=== PATIENT | male | born 1975 | race American Indian/Alaskan Native ===

== ENCOUNTER 2017-07-21 13:05 | Inpatient (IN) | payer OTHER ==
[2017-07-21 17:14] LABS: Basophils # (Auto) 0.1 K/mm3 (0.0-0.1); Basophils % (Auto) 0.3 % (0.0-1.8); Eosinophils # (Auto) 0.1 K/mm3 (0.0-0.4); Eosinophils % (Auto) 0.4 % (0.0-4.3); Hematocrit 47.5 % (35.5-45.6); Hemoglobin 15.9 gm/dl (11.8-15.2); Lymphocytes # (Auto) 1.7 K/mm3 (1.2-5.4); Lymphocytes % (Auto) 9.5 % (13.4-35.0); Mean Corpuscular HGB Conc 34 % (32-34); Mean Corpuscular Hemoglobin 27 pg (28-32); Mean Corpuscular Volume 79 fl (84-94); Monocytes # (Auto) 1.9 K/mm3 (0.0-0.8); Monocytes % (Auto) 10.4 % (0.0-7.3); Platelet Count 190 K/mm3 (140-440); Red Blood Count 6.01 M/mm3 (3.65-5.03); Red Cell Distribution Width 14.4 % (13.2-15.2)
[2017-07-21 17:32] LABS: BUN/Creatinine Ratio 16; Blood Urea Nitrogen 11 mg/dL (9-20); Calcium 9.3 mg/dL (8.4-10.2); Hemolysis Index 22
[2017-07-21] MEDS ORDERED: LOVENOX SUB-Q ONE (18:21)
[2017-07-21] MEDS ORDERED: HEPARIN 10,000 UNITS/10 ML IV ONE (18:27)
[2017-07-21] MEDS ORDERED: NACL 0.9% 1000 ML 1,000 ML IV ONE (18:32)
--- NOTE | 2017-07-21 18:32 | Emergency Department Report ---
HPI - General Chief Complaint: Extremity Problem,Nontraumatic Time Seen by Provider: 07/21/17 18:20 - HPI HPI: The patient is a 42-year-old male whom presents for evaluation of right leg pain. The patient reports constant and severe 10/10 in severity right leg pain for the past 4-5 days. He states today pain is sharp in quality, and radiating from the possible leg distally, and associated with swelling and color change of the right leg. He shares that he engaged in a long drive for hours, days before onset of his symptoms. He denies trauma or injury to the right leg, fever, chills, night sweats, chest pain, dyspnea, cough, hemoptysis, history of DVT or PE, paresthesias or motor deficit in the right leg or foot. ED Past Medical Hx - Past Medical History Hx Hypertension: Yes - Surgical History Past Surgical History?: Yes Hx Appendectomy: Yes - Social History Smoking Status: Current Some Day Smoker Substance Use Type: Alcohol, Marijuana ED Review of Systems ROS: Stated complaint: RIGHT LEG PAIN Other details as noted in HPI Constitutional: denies: fever ENT: denies: throat or neck pain Respiratory: denies: cough, shortness of breath Cardiovascular: denies: chest pain Endocrine: denies unexplained weight loss or gain Gastrointestinal: denies: abdominal pain, nausea Genitourinary: denies: dysuria Musculoskeletal: reports: right leg pain and leg swelling Skin: denies: rash Neurological: denies: headache Hematological/Lymphatic: denies: easy bleeding or easy bruising Psych: denies sadness or hopelessness Physical Exam - Physical Exam Vital Signs: Vital Signs 07/21/17 15:11 Temperature 98.4 F Pulse Rate 110 H Respiratory 20 Rate Blood Pressure 154/94 Blood Pressure 154/94 [Left] O2 Sat by Pulse 99 Oximetry Physical Exam: General: well-nourished, well-developed, no acute distress Head: Normocephalic, atraumatic Eyes: normal sclera ENT: Mucous membranes are pale and dry Neck: trachea midline, neck supple, No neck stiffness, no cervical adenopathy Respiratory: Breath sounds equal bilaterally, no wheezing, rales, or rhonchi Cardio: S1 and S2 present, no murmurs, rubs, gallops, capillary refill is delayed Abdomen: Normoactive bowel sounds, soft abdomen, no rigidity, no guarding or rebound tenderness Musc: 1+ pitting edema to the right lower leg present, right calf tenderness with compression present, ecchymosis or erythema present throughout the distal right leg as well, leg compartments are soft, no pain with passive flexion or extension, distal sensation and motor function, and pulses in the right leg and foot intact, no sign of compartment syndrome at this time Skin: No rash Neuro: no facial drooping, normal speech Psych: Normal affect ED Course Vital Signs 07/21/17 15:11 Temperature 98.4 F Pulse Rate 110 H Respiratory 20 Rate Blood Pressure 154/94 Blood Pressure 154/94 [Left] O2 Sat by Pulse 99 Oximetry ED Medical Decision Making - Lab Data Result diagrams: 07/21/17 16:54 07/21/17 16:54 - Medical Decision Making The patient was seen and examined by myself. The patient is placed on a library consultant and continuous pulse ox. On initial evaluation, the patient was found to be in no distress. Evaluation orders were placed. The patient is given IV pain medicine, and 1 L normal saline fluid bolus for treatment of his dehydration. Lab results reveal elevated d-dimer and otherwise are unrevealing. Exam findings are classic for acute occlusive DVT, and the patient will be treated as such until confirmed with ultrasound in the a.m. A heparin bolus and infusion are administer and a Doppler ultrasound the right leg is ordered for the morning. Dr. Cavanaugh the physician on-call for the hospitalist service was contacted. He agreed to admit the patient for further treatment and close monitoring. The ED admit order was placed. The patient was admitted in guarded condition. Critical care attestation.: If time is entered above; I have spent that time in minutes in the direct care of this critically ill patient, excluding procedure time. ED Disposition Clinical Impression: Pain of right lower leg, Dehydration Acute deep vein thrombosis (DVT) of right lower extremity Qualifiers: Affected thrombotic vein of extremity: unspecified vein of extremity Qualified Code(s): I82.401 - Acute embolism and thrombosis of unspecified deep veins of right lower extremity Disposition: OP ADMIT IP TO THIS HOSP Is pt being admited?: Yes Does the pt Need Aspirin: Yes Condition: Stable Time of Disposition: 18:34
[2017-07-21] MEDS ORDERED: SUBLIMAZE IV ONE (18:42)
[2017-07-21] MEDS ORDERED: ZOFRAN IV ONE (18:42)
--- NOTE | 2017-07-21 19:34 | History and Physical Report ---
History of Present Illness Chief complaint: My right leg hurts and i have a rash on it History of present illness: 42 YO Male with HTN, Obesity,Nicotine Dependence, Metabolic Syndrome presents to ED for evaluation. Pt states that he has experienced right leg pain for the past 5 days, as well as a rash to his right lower leg. Pt states that the rash began after applying a pain relief patch to his leg. Pt states the pain to his right calf is severe, and rates the pain at 10/10, constant. sharp, and radiates down his leg. Pt states that he engaged in a long drive for hours, days before onset of his symptoms. Pt denies fever, chills, CP, Palpitations, trauma or injury to the right leg, hemoptysis, night sweats, dyspnea, cough, individual/family history of DVT or PE, paresthesias or motor deficit in the right leg or foot, or recent ill contacts. Pt seen and evaluated in ED and was initiated on therapeutic anticoagulation. Pt also found to have sepsis secondary to cellulitis to RLE and initiated on antibiotic therpay and sepsis protocol. Past History Past Medical History: hypertension Past Surgical History: appendectomy Social history: single, smoking. denies: alcohol abuse, prescription drug abuse Family history: diabetes, hypertension Medications and Allergies Allergies Allergy/AdvReac Type Severity Reaction Status Date / Time No Known Allergies Allergy Unverified 07/21/17 15:11 Home Medications Medication Instructions Recorded Confirmed Last Taken Type No Known Home Medications [No 07/22/17 07/22/17 Unknown History Reported Home Medications] Active Meds: Active Medications Heparin Sodium/Sodium Chloride (Heparin/ 0.45% Nacl-25,000 Unit/500 Ml) 25,000 unit in 500 mls @ 30 mls/hr IV TITR ANTHONY; 1,500 UNITS/HR PRN Reason: Protocol Review of Systems Constitutional: no weight loss, no weight gain, no fever, no chills Ears, nose, mouth and throat: no ear pain, no ear discharge, no tinnitis, no decreased hearing, no nose pain Cardiovascular: no chest pain, no orthopnea, no palpitations, no rapid/ irregular heart beat, no edema, no syncope, no lightheadedness Respiratory: no cough, no cough with sputum, no excessive sputum, no hemoptysis , no shortness of breath, no dyspnea on exertion Gastrointestinal: no abdominal pain, no nausea, no vomiting, no diarrhea Genitourinary Male: no hematuria, no flank pain, no discharge, no urinary frequency, no urinary hesitancy Rectal: no pain, no incontinence, no bleeding Musculoskeletal: no neck stiffness, no neck pain, no shooting arm pain, no arm numbness/tingling, no low back pain Integumentary: no rash, no pruritis, no redness, no sores, no wounds, no jaundice Neurological: no transient paralysis, no paralysis, no weakness, no parathesias , no numbness, no tingling, no seizures Psychiatric: no anxiety, no memory loss, no change in sleep habits, no sleep disturbances, no insomnia, no hypersomnia Endocrine: no cold intolerance, no heat intolerance, no polyphagia, no excessive thirst, no polydipsia, no polyuria, no nocturia Hematologic/Lymphatic: no easy bruising, no easy bleeding Allergic/Immunologic: no urticaria, no allergic rhinitis, no wheezing Exam - Constitutional Vitals: Temp Pulse Resp BP Pulse Ox 98.4 F 110 H 20 154/94 99 07/21/17 15:11 07/21/17 15:11 07/21/17 15:11 07/21/17 15:11 07/21/17 15:11 General appearance: Present: obese - EENT Eyes: Present: PERRL ENT: hearing intact, clear oral mucosa - Neck Neck: Present: supple, normal ROM - Respiratory Respiratory effort: normal Respiratory: bilateral: CTA - Cardiovascular Heart Sounds: Present: S1 & S2. Absent: rub, click - Extremities Extremities: pulses symmetrical, No edema Extremity abnormal: edema, erythema Peripheral Pulses: within normal limits - Abdominal General gastrointestinal: Present: soft, non-tender, non-distended, normal bowel sounds Male genitourinary: Present: normal - Integumentary Integumentary: Present: clear, warm, dry, erythema (RLE, Palpable venous cords) - Musculoskeletal Musculoskeletal: gait normal, strength equal bilaterally - Psychiatric Psychiatric: appropriate mood/affect, intact judgment & insight - Neurologic Neurologic: CNII-XII intact, moves all extremities Results - Labs CBC & Chem 7: 07/21/17 20:48 07/21/17 16:54 Labs: Abnormal lab results 07/21/17 07/21/17 Range/Units 16:54 16:54 WBC 18.4 H (4.5-11.0) K/mm3 RBC 6.01 H (3.65-5.03) M/mm3 Hgb 15.9 H (11.8-15.2) gm/dl Hct 47.5 H (35.5-45.6) % MCV 79 L (84-94) fl MCH 27 L (28-32) pg Lymph % (Auto) 9.5 L (13.4-35.0) % [place] % (Auto) 10.4 H (0.0-7.3) % [place] # 1.9 H (0.0-0.8) K/mm3 Seg Neutrophils % 79.4 H (40.0-70.0) % Seg Neutrophils # 14.6 H (1.8-7.7) K/mm3 Potassium 3.5 L (3.6-5.0) mmol/L Chloride 95.4 L (98-107) mmol/L Creatinine 0.7 L (0.8-1.5) mg/dL Glucose 103 H (75-100) mg/dL Assessment and Plan - Patient Problems (1) Acute deep vein thrombosis (DVT) of right lower extremity Current Visit: Yes Status: Acute Qualifiers: Affected thrombotic vein of extremity: unspecified vein of extremity Qualified Code(s): I82.401 - Acute embolism and thrombosis of unspecified deep veins of right lower extremity Plan to address problem: Heparin drip initiated in ED, CT RLE, RLE ultrasound, (2) Sepsis Current Visit: Yes Status: Acute Qualifiers: Sepsis type: sepsis due to unspecified organism Qualified Code(s): A41.9 - Sepsis, unspecified organism Plan to address problem: Sepsis protocol: IV abx, IVF, supportive care, blood cultures, serial lactic acid level, urinalysis, chest x ray, monitor uop q shift, (3) Cellulitis of right lower extremity Current Visit: Yes Status: Acute Plan to address problem: IV abx, IVF, supportive care (4) Nicotine dependence Current Visit: Yes Status: Acute Plan to address problem: Pt counseled, (5) Metabolic syndrome Current Visit: Yes Status: Acute Plan to address problem: Increased physical acitivity, balanced diet at discharge (6) Obesity Current Visit: Yes Status: Acute Plan to address problem: Balanced diet, increased physical acitvity at discharge. (7) DVT prophylaxis Current Visit: Yes Status: Acute
[2017-07-21] MEDS ORDERED: ZOFRAN ONE (20:59)
[2017-07-21] MEDS ORDERED: SUBLIMAZE ONE (21:00)
[2017-07-21 21:04] LABS: Hematocrit 44.3 % (35.5-45.6)
[2017-07-21 21:16] LABS: INR 1.08 (0.87-1.13)
[2017-07-21] MEDS ORDERED: NACL 0.9% 1000 ML IV ONE (21:24)
[2017-07-21] MEDS ORDERED: MILK OF MAGNESIA PO PRN (21:24)
[2017-07-21] MEDS ORDERED: ZOFRAN IV PRN (21:24)
[2017-07-21] MEDS ORDERED: DULCOLAX PR PRN (21:24)
[2017-07-21] MEDS ORDERED: PROVENTIL IH PRN (21:24)
[2017-07-21] MEDS ORDERED: HEPARIN 10,000 UNITS/10 ML ONE (21:43)
[2017-07-21] MEDS: HEPARIN/ 0.45% NACL-25,000 UNIT/500 ML 25,000 UNIT/500 ML BAG IV SCH (22:08)
[2017-07-22] MEDS: ZOSYN/NS 4.5GM/100ML 4.5 GM/100 ML VIAL IV SCH ×5 (01:46→23:21)
--- NOTE | 2017-07-22 01:52 | Cat Scan Report ---
FINAL REPORT EXAM: CT ANGIO LOWER EXTREMITY RT HISTORY: distal right leg swelling and pain TECHNIQUE: A CT angiogram was obtained of the right lower extremity extending from the hip joint through the entire foot following the intravenous injection of 150 cc of Omnipaque 350. Rotational sagittal and coronal MIP reconstructions were obtained. FINDINGS: There is diffuse subcutaneous edema extending from the distal thigh to involving entire calf and foot compatible with an extensive cellulitis there is no evidence of abscess or osteomyelitis. There is no evidence of arterial thrombosis or venous obstruction. The ankle knee joints appear intact. The hip joint is unremarkable. IMPRESSION: Extensive cellulitis extending from the distal thigh to involve the entire calf and foot. No evidence of abscess or osteomyelitis. No evidence of arterial obstruction or venous obstruction.
[2017-07-22] MEDS ORDERED: HEPARIN 10,000 UNITS/10 ML IV ONE (06:45)
[2017-07-22 09:01] LABS: Hematocrit 41.1 % (35.5-45.6); Hemoglobin 13.3 gm/dl (11.8-15.2); Mean Corpuscular HGB Conc 32 % (32-34); Mean Corpuscular Volume 80 fl (84-94); Platelet Count 180 K/mm3 (140-440); Red Blood Count 5.15 M/mm3 (3.65-5.03); Red Cell Distribution Width 14.9 % (13.2-15.2)
[2017-07-22 09:13] LABS: Mean Corpuscular Hemoglobin 26 pg (28-32)
[2017-07-22 09:21] LABS: BUN/Creatinine Ratio 13; Blood Urea Nitrogen 8 mg/dL (9-20); Calcium 8.6 mg/dL (8.4-10.2); Hemolysis Index 97
[2017-07-22] MEDS: TYLENOL PO PRN ×3 (10:31→23:48)
[2017-07-22] MEDS: HEPARIN/ 0.45% NACL-25,000 UNIT/500 ML 25,000 UNIT/500 ML BAG IV SCH (13:33)
--- NOTE | 2017-07-22 14:06 | Progress Note ---
Assessment and Plan Assessment and plan: Sepsis due to right leg cellulitis. Continue Zosyn. Will consult ID Physician. Cellulitis right leg. There is warmth , merythema, color change. On Zosyn. Will consult ID Physician. Hypertension. BP stable. Morbid obesity. I discussed weight loss Full code status History Interval history: Right leg pain and redness Fever Hospitalist Physical - Physical exam Narrative exam: GEN APPEARANCE : Not in acute distress, morbidly obese HEENT: Normocephalic, Atraumatic NECK : supple, no JVD LUNGS: Clear to auscultation bilaterally, no rales, no wheeze HEART: S1 and S2 regular tachy, no murmurs, rubs or gallop ABD: Soft, non tender, non distended, normal bowel sounds EXT: Right leg erythema, warm, tender, no cyanosis, NEURO: Awake,alert, oriented x 3, no focal signs Psych: Normal mood - Constitutional Vitals: Temp Pulse Resp BP Pulse Ox 98.7 F 97 H 22 140/89 96 07/22/17 12:36 07/22/17 12:36 07/22/17 12:36 07/22/17 12:36 07/22/17 12:36 Results - Labs CBC & Chem 7: 07/22/17 08:05 07/22/17 08:05 Labs: Laboratory Last Values WBC 18.3 K/mm3 (4.5-11.0) H 07/22/17 08:05 RBC 5.15 M/mm3 (3.65-5.03) H 07/22/17 08:05 Hgb 13.3 gm/dl (11.8-15.2) 07/22/17 08:05 Hct 41.1 % (35.5-45.6) 07/22/17 08:05 MCV 80 fl (84-94) L 07/22/17 08:05 MCH 26 pg (28-32) L 07/22/17 08:05 MCHC 32 % (32-34) 07/22/17 08:05 RDW 14.9 % (13.2-15.2) 07/22/17 08:05 Plt Count 180 K/mm3 (140-440) 07/22/17 08:05 Lymph % (Auto) 9.5 % (13.4-35.0) L 07/21/17 16:54 [place] % (Auto) 10.4 % (0.0-7.3) H 07/21/17 16:54 Eos % (Auto) 0.4 % (0.0-4.3) 07/21/17 16:54 Baso % (Auto) 0.3 % (0.0-1.8) 07/21/17 16:54 Lymph # 1.7 K/mm3 (1.2-5.4) 07/21/17 16:54 [place] # 1.9 K/mm3 (0.0-0.8) H 07/21/17 16:54 Eos # 0.1 K/mm3 (0.0-0.4) 07/21/17 16:54 Baso # 0.1 K/mm3 (0.0-0.1) 07/21/17 16:54 Seg Neutrophils % 79.4 % (40.0-70.0) H 07/21/17 16:54 Seg Neutrophils # 14.6 K/mm3 (1.8-7.7) H 07/21/17 16:54 PT 14.6 Sec. (12.2-14.9) 07/21/17 20:48 INR 1.08 (0.87-1.13) 07/21/17 20:48 APTT 40.0 Sec. (24.2-36.6) H 07/21/17 20:48 D-Dimer 194.86 ng/mlDDU (0-234) 07/21/17 20:48 Heparin Anti-Xa Level < 0.10 U.I./ml (0.3-0.7) L 07/22/17 04:00 Sodium 138 mmol/L (137-145) 07/22/17 08:05 Potassium 4.5 mmol/L (3.6-5.0) D 07/22/17 08:05 Chloride 96.9 mmol/L (98-107) L 07/22/17 08:05 Carbon Dioxide 24 mmol/L (22-30) 07/22/17 08:05 Anion Gap 22 mmol/L 07/22/17 08:05 BUN 8 mg/dL (9-20) L 07/22/17 08:05 Creatinine 0.6 mg/dL (0.8-1.5) L 07/22/17 08:05 Estimated GFR > 60 ml/min 07/22/17 08:05 BUN/Creatinine Ratio 13 % 07/22/17 08:05 Glucose 108 mg/dL (75-100) H 07/22/17 08:05 Lactic Acid 1.60 mmol/L (0.7-2.0) 07/22/17 03:30 Calcium 8.6 mg/dL (8.4-10.2) 07/22/17 08:05 Total Creatine Kinase 148 units/L (55-170) 07/21/17 Unknown
--- NOTE | 2017-07-22 14:31 | Consultation ---
History of Present Illness - Reason for Consult Consult date: 07/22/17 cellulitis Requesting physician: RIKI SHAFER - History of Present Illness 42 years old male with history of HTN, Obesity,Nicotine Dependence, Metabolic Syndrome, admitted on 07/21/17, 3 weeks history of progressive left leg edema, erythema, tenderness. Patient reports that 3 weeks ago he dropped a couch on his left great toe. His toe became red however with minimal pain. The same day , he noticed severe pain on his left heel. Since then he noticed mild erythema in the foot. During the last week, he had edema which progressed and became very tender and edematous. Patient kept working and his boss told him to seek for medical attention. He reports subjective fever. Denies any nausea vomiting or diarrhea. Reports chills. In the emergency room, initial temperature was 100.6, heart rate 110, blood pressure 154/94. Initial white count 18.4. Creatinine 0.7. Lactic acid 1.5. CTA of the legs show extensive cellulitis without any abscess or osteomyelitis. Microbiology: Blood cultures: 07/21 ngtd Urine cultures: Current Antimicrobials: Zosyn Previous Antimicrobials: Past History Past Medical History: hypertension Past Surgical History: appendectomy Social history: single, smoking. denies: alcohol abuse, prescription drug abuse Family history: diabetes, hypertension Medications and Allergies Allergies Allergy/AdvReac Type Severity Reaction Status Date / Time No Known Allergies Allergy Unverified 07/21/17 15:11 Home Medications Medication Instructions Recorded Confirmed Last Taken Type No Known Home Medications [No 07/22/17 07/22/17 Unknown History Reported Home Medications] Active Meds: Active Medications Acetaminophen (Tylenol) 650 mg PO Q4H PRN PRN Reason: Pain MILD(1-3)/Fever >100.5/MAYER Last Admin: 07/22/17 10:31 Dose: 650 mg Albuterol (Proventil) 2.5 mg IH Q4HRT PRN PRN Reason: Shortness Of Breath Bisacodyl (Dulcolax) 10 mg MT QDAY PRN PRN Reason: Constipation unrelieved by MOM Heparin Sodium/Sodium Chloride (Heparin/ 0.45% Nacl-25,000 Unit/500 Ml) 25,000 unit in 500 mls @ 30 mls/hr IV TITR ANTHONY; 1,500 UNITS/HR PRN Reason: Protocol Last Admin: 07/22/17 13:33 Dose: 1,900 units/hr, 38 mls/hr Piperacillin Sod/Tazobactam Sod (Zosyn/Ns 4.5gm/100ml) 4.5 gm in 100 mls @ 200 mls/hr IV Q8HR ANTHONY PRN Reason: Protocol Last Admin: 07/22/17 09:31 Dose: 200 mls/hr Magnesium Hydroxide (Milk Of Magnesia) 30 ml PO Q4H PRN PRN Reason: Constipation Ondansetron HCl (Zofran) 4 mg IV Q8H PRN PRN Reason: N/V unrelieved by Reglan Physical Examination - Physical Exam Narrative exam: General appearance: Alert in NAD, conversant Eyes: anicteric sclerae, moist conjunctivae; no lid-lag; PERRLA HENT: Atraumatic; oropharynx clear Neck: Trachea midline; supple, no thyromegaly or lymphadenopathy Lungs: CTA, with normal respiratory effort and no intercostal retractions CV: RRR, no murmurs Abdomen: Soft, non-tender; no masses or hepatosplenomegaly Extremities: No peripheral edema or extremity lymphadenopathy Skin: +marked right leg edema, tenderness and erythema +right inguinal LN Psych: Appropriate affect, alert and oriented to person, place and time. Neuro: alert and oriented x 3. Moving all extermities Lines: No CVL / PICC - Constitutional Vitals: Vital Signs Temp Pulse Resp BP Pulse Ox 98.7 F 97 H 22 140/89 96 07/22/17 12:36 07/22/17 12:36 07/22/17 12:36 07/22/17 12:36 07/22/17 12:36 Temperature -Last 24 Hours Temperature 98.7 F Temperature 100.3 F Temperature 100.6 F Temperature 98.4 F Temperature 98.4 F Results - Labs CBC & Chem 7: 07/22/17 08:05 07/22/17 08:05 Labs: Abnormal lab results 07/21/17 07/21/17 07/21/17 Range/Units 16:54 16:54 20:48 WBC 18.4 H (4.5-11.0) K/mm3 RBC 6.01 H (3.65-5.03) M/mm3 Hgb 15.9 H (11.8-15.2) gm/dl Hct 47.5 H (35.5-45.6) % MCV 79 L (84-94) fl MCH 27 L (28-32) pg Lymph % (Auto) 9.5 L (13.4-35.0) % [place] % (Auto) 10.4 H (0.0-7.3) % [place] # 1.9 H (0.0-0.8) K/mm3 Seg Neutrophils % 79.4 H (40.0-70.0) % Seg Neutrophils # 14.6 H (1.8-7.7) K/mm3 APTT 40.0 H (24.2-36.6) Sec. Heparin Anti-Xa Level (0.3-0.7) U.I./ml Potassium 3.5 L (3.6-5.0) mmol/L Chloride 95.4 L (98-107) mmol/L BUN (9-20) mg/dL Creatinine 0.7 L (0.8-1.5) mg/dL Glucose 103 H (75-100) mg/dL 07/22/17 07/22/17 07/22/17 Range/Units 04:00 08:05 08:05 WBC 18.3 H (4.5-11.0) K/mm3 RBC 5.15 H (3.65-5.03) M/mm3 Hgb (11.8-15.2) gm/dl Hct (35.5-45.6) % MCV 80 L (84-94) fl MCH 26 L (28-32) pg Lymph % (Auto) (13.4-35.0) % [place] % (Auto) (0.0-7.3) % [place] # (0.0-0.8) K/mm3 Seg Neutrophils % (40.0-70.0) % Seg Neutrophils # (1.8-7.7) K/mm3 APTT (24.2-36.6) Sec. Heparin Anti-Xa Level < 0.10 L (0.3-0.7) U.I./ml Potassium (3.6-5.0) mmol/L Chloride 96.9 L (98-107) mmol/L BUN 8 L (9-20) mg/dL Creatinine 0.6 L (0.8-1.5) mg/dL Glucose 108 H (75-100) mg/dL Assessment and Plan Assessment: 1) Sepsis: Present on admission, manifested by fever, tachycardia, leukocytosis. Etiology most likely RLE cellulitis. 2) RLE cellulitis -CTA showed extensive cellulitis no abscess or osteo 3) Athlete's foot Plan: -follow-up blood cultures -obtain C-reactive protein (CRP) -US venous -leg elevation -add clindamycin IV -continue zosyn -topical antimicotics Thank you Dr Shafer for your consultation, will follow up with you. Perla Williamson MD Infectious Diseases Specialist [facility], [place], [facility] ([facility] M [phone] O [phone]
[2017-07-22] MEDS: CLEOCIN 900 MG/50 mL 900 MG/50 ML BAG IV SCH ×2 (15:56→23:24)
[2017-07-22] MEDS: NIZORAL TP SCH ×2 (17:17→23:31)
[2017-07-23] MEDS: HEPARIN/ 0.45% NACL-25,000 UNIT/500 ML 25,000 UNIT/500 ML BAG IV SCH (01:59)
[2017-07-23 02:56] LABS: Hematocrit 40.4 % (35.5-45.6); Hemoglobin 13.5 gm/dl (11.8-15.2); Mean Corpuscular HGB Conc 33 % (32-34); Mean Corpuscular Hemoglobin 27 pg (28-32); Mean Corpuscular Volume 79 fl (84-94); Platelet Count 197 K/mm3 (140-440); Red Blood Count 5.08 M/mm3 (3.65-5.03); Red Cell Distribution Width 14.7 % (13.2-15.2)
[2017-07-23 06:11] LABS: BUN/Creatinine Ratio 10; Blood Urea Nitrogen 7 mg/dL (9-20)
[2017-07-23 06:12] LABS: Hemolysis Index 15
[2017-07-23] MEDS: CLEOCIN 900 MG/50 mL 900 MG/50 ML BAG IV SCH ×2 (07:35→14:47)
[2017-07-23] MEDS: ZOSYN/NS 4.5GM/100ML 4.5 GM/100 ML VIAL IV SCH ×2 (07:35→15:02)
--- NOTE | 2017-07-23 09:48 | Progress Note ---
Assessment and Plan Assessment and plan: Sepsis due to right leg cellulitis. Continue Zosyn. ID Physician following Cellulitis right leg. There is warmth , erythema, color change. Continue Zosyn. . Hypertension. BP stable. Morbid obesity. I discussed weight loss Full code status History Interval history: Right leg pain and redness Fever Hospitalist Physical - Physical exam Narrative exam: GEN APPEARANCE : Not in acute distress, morbidly obese HEENT: Normocephalic, Atraumatic NECK : supple, no JVD LUNGS: Clear to auscultation bilaterally, no rales, no wheeze HEART: S1 and S2 regular tachy, no murmurs, rubs or gallop ABD: Soft, non tender, non distended, normal bowel sounds EXT: Right leg erythema, warm, tender, no cyanosis, NEURO: Awake,alert, oriented x 3, no focal signs Psych: Normal mood - Constitutional Vitals: Temp Pulse Resp BP Pulse Ox 98.4 F 106 H 18 126/73 96 07/23/17 08:26 07/23/17 08:26 07/23/17 08:26 07/23/17 08:26 07/23/17 08:26 General appearance: Present: obese Results - Labs CBC & Chem 7: 07/23/17 02:43 07/23/17 04:59 Labs: Laboratory Last Values WBC 16.8 K/mm3 (4.5-11.0) H 07/23/17 02:43 RBC 5.08 M/mm3 (3.65-5.03) H 07/23/17 02:43 Hgb 13.5 gm/dl (11.8-15.2) 07/23/17 02:43 Hct 40.4 % (35.5-45.6) 07/23/17 02:43 MCV 79 fl (84-94) L 07/23/17 02:43 MCH 27 pg (28-32) L 07/23/17 02:43 MCHC 33 % (32-34) 07/23/17 02:43 RDW 14.7 % (13.2-15.2) 07/23/17 02:43 Plt Count 197 K/mm3 (140-440) 07/23/17 02:43 Lymph % (Auto) 9.5 % (13.4-35.0) L 07/21/17 16:54 [place] % (Auto) 10.4 % (0.0-7.3) H 07/21/17 16:54 Eos % (Auto) 0.4 % (0.0-4.3) 07/21/17 16:54 Baso % (Auto) 0.3 % (0.0-1.8) 07/21/17 16:54 Lymph # 1.7 K/mm3 (1.2-5.4) 07/21/17 16:54 [place] # 1.9 K/mm3 (0.0-0.8) H 07/21/17 16:54 Eos # 0.1 K/mm3 (0.0-0.4) 07/21/17 16:54 Baso # 0.1 K/mm3 (0.0-0.1) 07/21/17 16:54 Seg Neutrophils % 79.4 % (40.0-70.0) H 07/21/17 16:54 Seg Neutrophils # 14.6 K/mm3 (1.8-7.7) H 07/21/17 16:54 PT 14.6 Sec. (12.2-14.9) 07/21/17 20:48 INR 1.08 (0.87-1.13) 07/21/17 20:48 APTT 40.0 Sec. (24.2-36.6) H 07/21/17 20:48 D-Dimer 194.86 ng/mlDDU (0-234) 07/21/17 20:48 Heparin Anti-Xa Level 0.35 U.I./ml (0.3-0.7) 07/23/17 07:43 Sodium 139 mmol/L (137-145) 07/23/17 04:59 Potassium 3.9 mmol/L (3.6-5.0) 07/23/17 04:59 Chloride 98.0 mmol/L (98-107) 07/23/17 04:59 Carbon Dioxide 21 mmol/L (22-30) L 07/23/17 04:59 Anion Gap 24 mmol/L 07/23/17 04:59 BUN 7 mg/dL (9-20) L 07/23/17 04:59 Creatinine 0.7 mg/dL (0.8-1.5) L 01/06/18 04:59 Estimated GFR > 60 ml/min 07/23/17 04:59 BUN/Creatinine Ratio 10 % 07/23/17 04:59 Glucose 94 mg/dL (75-100) 07/23/17 04:59 Lactic Acid 1.60 mmol/L (0.7-2.0) 07/22/17 03:30 Calcium 8.0 mg/dL (8.4-10.2) L 07/23/17 04:59 Total Creatine Kinase 148 units/L (55-170) 07/21/17 Unknown C-Reactive Protein 24.80 mg/dL (0.00-1.30) H 07/22/17 08:05
[2017-07-23] MEDS: TYLENOL PO PRN ×2 (11:16→18:53)
[2017-07-23] MEDS: NIZORAL TP SCH (11:16)
--- NOTE | 2017-07-23 12:06 | Progress Note ---
Assessment and Plan Assessment: 1) Sepsis: better. Etiology most likely RLE cellulitis. CRP=24 2) RLE cellulitis -CTA showed extensive cellulitis no abscess or osteo 3) Athlete's foot Plan: -leg elevation -continue clindamycin IV -stop zosyn, start cefazolin -topical antimicotics If clinically better in 24h of to d/c home on ceftin 500 mg po q12h total 10 days and strict left elevation I will be off tomorrow covering over the phone Thank you Dr Schwartz for your consultation, will follow up with you. Perla Williamson MD Infectious Diseases Specialist [facility] M [phone] Subjective Date of service: 07/23/17 Principal diagnosis: cellulitis Interval history: Feels better, leg pain and swelling decreasing, fever resolving Microbiology: Blood cultures: 07/21 ngtd Urine cultures: Current Antimicrobials: Zosyn clinda Previous Antimicrobials: Objective - Exam Narrative Exam: General appearance: Alert in NAD, conversant Eyes: anicteric sclerae, moist conjunctivae; no lid-lag; PERRLA HENT: Atraumatic; oropharynx clear Neck: Trachea midline; supple, no thyromegaly or lymphadenopathy Lungs: CTA, with normal respiratory effort and no intercostal retractions CV: RRR, no murmurs Abdomen: Soft, non-tender; no masses or hepatosplenomegaly Extremities: No peripheral edema or extremity lymphadenopathy Skin: +decreased marked right leg edema, tenderness and erythema +right inguinal LN Psych: Appropriate affect, alert and oriented to person, place and time. Neuro: alert and oriented x 3. Moving all extermities Lines: No CVL / PICC - Constitutional Vitals: Vital Signs Temp Pulse Resp BP Pulse Ox 98.4 F 106 H 18 126/73 96 07/23/17 08:26 07/23/17 08:26 07/23/17 08:26 07/23/17 08:26 07/23/17 10:00 Temperature -Last 24 Hours Temperature 98.4 F Temperature 99.1 F Temperature 99.8 F Temperature 98.7 F Temperature 99.3 F Temperature 98.7 F - Labs CBC & Chem 7: 07/23/17 02:43 07/23/17 04:59 Labs: Abnormal lab results 07/22/17 07/22/17 07/23/17 Range/Units 08:05 16:20 00:35 WBC (4.5-11.0) K/mm3 RBC (3.65-5.03) M/mm3 MCV (84-94) fl MCH (28-32) pg Heparin Anti-Xa Level < 0.10 L 0.26 L (0.3-0.7) U.I./ml Carbon Dioxide (22-30) mmol/L BUN (9-20) mg/dL Creatinine (0.8-1.5) mg/dL Calcium (8.4-10.2) mg/dL C-Reactive Protein 24.80 H (0.00-1.30) mg/dL 07/23/17 07/23/17 Range/Units 02:43 04:59 WBC 16.8 H (4.5-11.0) K/mm3 RBC 5.08 H (3.65-5.03) M/mm3 MCV 79 L (84-94) fl MCH 27 L (28-32) pg Heparin Anti-Xa Level (0.3-0.7) U.I./ml Carbon Dioxide 21 L (22-30) mmol/L BUN 7 L (9-20) mg/dL Creatinine 0.7 L (0.8-1.5) mg/dL Calcium 8.0 L (8.4-10.2) mg/dL C-Reactive Protein (0.00-1.30) mg/dL
[2017-07-24] MEDS: ZOSYN/NS 4.5GM/100ML 4.5 GM/100 ML VIAL IV SCH ×2 (00:14→06:17)
[2017-07-24] MEDS: CLEOCIN 900 MG/50 mL 900 MG/50 ML BAG IV SCH ×4 (00:14→23:07)
[2017-07-24] MEDS: NIZORAL TP SCH ×3 (00:15→23:26)
[2017-07-24] MEDS: TYLENOL PO PRN (01:51)
[2017-07-24 06:33] LABS: Hematocrit 39.2 % (35.5-45.6); Mean Corpuscular HGB Conc 33 % (32-34); Mean Corpuscular Hemoglobin 26 pg (28-32); Mean Corpuscular Volume 79 fl (84-94); Platelet Count 244 K/mm3 (140-440); Red Blood Count 4.97 M/mm3 (3.65-5.03)
[2017-07-24] MEDS: LOVENOX SUB-Q SCH (10:16)
--- NOTE | 2017-07-24 12:50 | Progress Note ---
Assessment and Plan Assessment and plan: Sepsis due to right leg cellulitis. Continue Clindamycin and Cefazolin. ID Physician following Cellulitis right leg. Area of redness is larger. I called and discussed with ID Physician. Continue Clindamycin and Cefazolin. Hypertension. BP increased. Start Norvasc 5mg po daily. Morbid obesity. I had discussed weight loss DVT prophylaxis. On Lovenox Full code status History Interval history: Right leg pain and redness is worse today Fever subsiding-no fever x 2 days Hospitalist Physical - Physical exam Narrative exam: GEN APPEARANCE : Not in acute distress, morbidly obese HEENT: Normocephalic, Atraumatic NECK : supple, no JVD LUNGS: Clear to auscultation bilaterally, no rales, no wheeze HEART: S1 and S2 regular tachy, no murmurs, rubs or gallop ABD: Soft, non tender, non distended, normal bowel sounds EXT: Right leg erythema, warm, tender, no cyanosis, NEURO: Awake,alert, oriented x 3, no focal signs Psych: Normal mood - Constitutional Vitals: Temp Pulse Resp BP Pulse Ox 98.2 F 101 H 18 146/79 97 07/24/17 07:37 07/24/17 07:37 07/24/17 07:37 07/24/17 07:37 07/24/17 09:12 General appearance: Present: obese Results - Labs CBC & Chem 7: 07/24/17 05:19 07/23/17 04:59 Labs: Laboratory Last Values WBC 15.1 K/mm3 (4.5-11.0) H 07/24/17 05:19 RBC 4.97 M/mm3 (3.65-5.03) 07/24/17 05:19 Hgb 13.0 gm/dl (11.8-15.2) 07/24/17 05:19 Hct 39.2 % (35.5-45.6) 07/24/17 05:19 MCV 79 fl (84-94) L 07/24/17 05:19 MCH 26 pg (28-32) L 07/24/17 05:19 MCHC 33 % (32-34) 07/24/17 05:19 RDW 15.0 % (13.2-15.2) 07/24/17 05:19 Plt Count 244 K/mm3 (140-440) 07/24/17 05:19 Lymph % (Auto) 9.5 % (13.4-35.0) L 07/21/17 16:54 Towner % (Auto) 10.4 % (0.0-7.3) H 07/21/17 16:54 Eos % (Auto) 0.4 % (0.0-4.3) 07/21/17 16:54 Baso % (Auto) 0.3 % (0.0-1.8) 07/21/17 16:54 Lymph # 1.7 K/mm3 (1.2-5.4) 07/21/17 16:54 Towner # 1.9 K/mm3 (0.0-0.8) H 07/21/17 16:54 Eos # 0.1 K/mm3 (0.0-0.4) 07/21/17 16:54 Baso # 0.1 K/mm3 (0.0-0.1) 07/21/17 16:54 Seg Neutrophils % 79.4 % (40.0-70.0) H 07/21/17 16:54 Seg Neutrophils # 14.6 K/mm3 (1.8-7.7) H 07/21/17 16:54 PT 14.6 Sec. (12.2-14.9) 07/21/17 20:48 INR 1.08 (0.87-1.13) 07/21/17 20:48 APTT 40.0 Sec. (24.2-36.6) H 07/21/17 20:48 D-Dimer 194.86 ng/mlDDU (0-234) 07/21/17 20:48 Heparin Anti-Xa Level 0.35 U.I./ml (0.3-0.7) 07/23/17 07:43 Sodium 139 mmol/L (137-145) 07/23/17 04:59 Potassium 3.9 mmol/L (3.6-5.0) 07/23/17 04:59 Chloride 98.0 mmol/L (98-107) 07/23/17 04:59 Carbon Dioxide 21 mmol/L (22-30) L 07/23/17 04:59 Anion Gap 24 mmol/L 07/23/17 04:59 BUN 7 mg/dL (9-20) L 07/23/17 04:59 Creatinine 0.7 mg/dL (0.8-1.5) L 07/23/17 04:59 Estimated GFR > 60 ml/min 07/23/17 04:59 BUN/Creatinine Ratio 10 % 07/23/17 04:59 Glucose 94 mg/dL (75-100) 07/23/17 04:59 Lactic Acid 1.60 mmol/L (0.7-2.0) 07/22/17 03:30 Calcium 8.0 mg/dL (8.4-10.2) L 07/23/17 04:59 Total Creatine Kinase 148 units/L (55-170) 07/21/17 Unknown C-Reactive Protein 24.80 mg/dL (0.00-1.30) H 07/22/17 08:05
[2017-07-24] MEDS: ceFAZolin 1 GM in NACL 0.9% 20 ML IV SCH ×2 (13:21→20:52)
[2017-07-24] MEDS: NORCO 5/325 PO PRN ×2 (15:03→20:38)
[2017-07-24] MEDS: NORVASC PO SCH (20:38)
[2017-07-25] MEDS: NORCO 5/325 PO PRN ×5 (01:16→22:06)
[2017-07-25] MEDS: ceFAZolin 1 GM in NACL 0.9% 20 ML IV SCH ×3 (05:03→21:04)
[2017-07-25] MEDS: CLEOCIN 900 MG/50 mL 900 MG/50 ML BAG IV SCH ×3 (05:03→22:00)
[2017-07-25 06:22] LABS: Hematocrit 41.4 % (35.5-45.6); Hemoglobin 13.5 gm/dl (11.8-15.2); Mean Corpuscular HGB Conc 33 % (32-34); Mean Corpuscular Volume 78 fl (84-94); Platelet Count 300 K/mm3 (140-440); Red Blood Count 5.28 M/mm3 (3.65-5.03)
[2017-07-25 06:27] LABS: Mean Corpuscular Hemoglobin 26 pg (28-32)
[2017-07-25] MEDS: LOVENOX SUB-Q SCH (09:48)
[2017-07-25] MEDS: NORVASC PO SCH (09:48)
[2017-07-25] MEDS: NIZORAL TP SCH ×2 (09:53→22:14)
[2017-07-25 10:27] LABS: BUN/Creatinine Ratio 12; Blood Urea Nitrogen 7 mg/dL (9-20); Calcium 9.1 mg/dL (8.4-10.2); Hemolysis Index 9
--- NOTE | 2017-07-25 14:05 | Progress Note ---
<GOBA,NBALLU - Last Filed: 07/25/17 14:46> Assessment and Plan Assessment: 1) Sepsis-present on admission manifested by fever, tacycardia, leukocytosis. Etiology most likely RLE cellulitis 2) RLE cellulitis -CTA showed extensive cellulitis. No abscess or osteo Plan: -Follow up with blood cultures -obtain C-reactive protein (CRP) -US venous -continue leg elevation -continue zosyn -continue topical antimicotics -Recommend levaquin 750 mg po q 12 hrs x 10 days Subjective Date of service: 07/25/17 Principal diagnosis: cellulitis Interval history: I have been elevating my legs Microbiology Blood cultures: 07/21 ngtd Urine cultures: Current Antimicrobials -Zosyn Previous Antimicrobials: Objective - Constitutional Vitals: Vital Signs Temp Pulse Resp BP Pulse Ox 98.4 F 94 H 20 140/94 94 07/25/17 12:10 07/25/17 12:10 07/25/17 12:10 07/25/17 12:10 07/25/17 12:10 Temperature -Last 24 Hours Temperature 98.4 F Temperature 98.9 F Temperature 98.8 F Temperature 98.3 F Temperature 98.8 F Temperature 98.8 F General appearance: Present: no acute distress - EENT Eyes: EOM intact - Neck Neck: supple, normal ROM - Respiratory Respiratory effort: normal Respiratory: right: CTA - Cardiovascular Rhythm: regular Heart Sounds: Present: S1 & S2 Extremity abnormal: edema (right leg cindi, tenderness and erythema) - Gastrointestinal General gastrointestinal: Present: soft, non-tender - Genitourinary Male genitourinary: normal - Integumentary Integumentary: warm, erythema (right lowe extremity deman, tenderness, and erythema) - Psychiatric Psychiatric: appropriate mood/affect, memory intact, cooperative - Labs CBC & Chem 7: 07/25/17 06:05 07/25/17 09:37 Labs: Abnormal lab results 07/25/17 07/25/17 Range/Units 06:05 09:37 WBC 15.2 H (4.5-11.0) K/mm3 RBC 5.28 H (3.65-5.03) M/mm3 MCV 78 L (84-94) fl MCH 26 L (28-32) pg BUN 7 L (9-20) mg/dL Creatinine 0.6 L (0.8-1.5) mg/dL Glucose 137 H (75-100) mg/dL <PERLA ECHEVARRIA - Last Filed: 07/25/17 15:32> Assessment and Plan I have seen and examined patient with SECONDS HANDLER Cassy Black, I have reviewed her interval history, physical examinantion, assessment and plan. I agree with her report with the addition CRP=[address] did not show deep infection, upon discharge will do CEFTIN 500 mg PO q12h and levaquin 750 mg po qday total 10 days and strict leg elevation for one more week. Ok to d/c home. Leg edema and skin changes may take 2-3 weeks to improve if he rests. Perla Bro MD Objective - Constitutional Vitals: Vital Signs Temp Pulse Resp BP Pulse Ox 98.9 F 103 H 15 147/86 98 07/25/17 14:59 07/25/17 14:59 07/25/17 14:59 07/25/17 14:59 07/25/17 14:59 Temperature -Last 24 Hours Temperature 98.9 F Temperature 98.4 F Temperature 98.9 F Temperature 98.8 F Temperature 98.3 F Temperature 98.8 F - Labs CBC & Chem 7: 07/25/17 06:05 07/25/17 09:37 Labs: Abnormal lab results 07/25/17 07/25/17 Range/Units 06:05 09:37 WBC 15.2 H (4.5-11.0) K/mm3 RBC 5.28 H (3.65-5.03) M/mm3 MCV 78 L (84-94) fl MCH 26 L (28-32) pg BUN 7 L (9-20) mg/dL Creatinine 0.6 L (0.8-1.5) mg/dL Glucose 137 H (75-100) mg/dL
--- NOTE | 2017-07-25 16:55 | Progress Note ---
Assessment and Plan Assessment and plan: 42 YO Male with HTN, Obesity,Nicotine Dependence, Metabolic Syndrome presents to ED for evaluation. Pt states that he has experienced right leg pain for the past 5 days, as well as a rash to his right lower leg. Pt states that the rash began after applying a pain relief patch to his leg. Pt states the pain to his right calf is severe, and rates the pain at 10/10, constant. sharp, and radiates down his leg. Pt states that he engaged in a long drive for hours, days before onset of his symptoms. Pt denies fever, chills, CP, Palpitations, trauma or injury to the right leg, hemoptysis, night sweats, dyspnea, cough, individual/family history of DVT or PE, paresthesias or motor deficit in the right leg or foot, or recent ill contacts. Pt seen and evaluated in ED and was initiated on therapeutic anticoagulation. Pt also found to have sepsis secondary to cellulitis to RLE and initiated on antibiotic therpay and sepsis protocol. Lower extremity Doppler did not reveal any deep vein thrombosis. Sepsis due to right leg cellulitis. Continue Clindamycin and Cefazolin. CT lower extremity reveals extensive cellulitis but no deep tissue infection ID Physician following. Anticipate discharge in a.m. on Ceftin 500 mg by mouth every 12 hours and Levaquin 750 mg by mouth daily for 10 days with straight leg elevation patient to follow-up with ID. Cellulitis right leg. Area of redness is larger. I called and discussed with ID Physician. Continue Clindamycin and Cefazolin. Hypertension. BP increased. Start Norvasc 5mg po daily. Morbid obesity. I had discussed weight loss DVT prophylaxis. On Lovenox Full code status Plan of care discussed with the patient in detail. Verbalized understanding History Interval history: Patient seen and examined this morning, denies any chest nausea vomiting and diarrhea still with some pain in the right lower extremity although reports some mild improvement. No other adverse event reported by nursing staff. Hospitalist Physical - Physical exam Narrative exam: VITAL SIGNS: Reviewed. GENERAL: The patient appeared well nourished and normally developed. Otherwise morbidly obese Vital signs as documented. HEAD: No signs of head trauma. EYES: Pupils are equal. Extraocular motions intact. EARS: Hearing grossly intact. MOUTH: Oropharynx is normal. NECK: No adenopathy, no JVD. CHEST: Chest with clear breath sounds bilaterally. No wheezes, rales, or rhonchi. CARDIAC: Regular rate and rhythm. S1 and S2, without murmurs, gallops, or rubs. VASCULAR: No Edema. Peripheral pulses normal and equal in all extremities. ABDOMEN: Soft, without detectable tenderness. No sign of distention. No rebound or guarding, and no masses palpated. Bowel Sounds normal. MUSCULOSKELETAL: Good range of motion of all major joints. Extremities without clubbing, cyanosis or edema. NEUROLOGIC EXAM: Alert and oriented x 3. No focal sensory or strength deficits. Speech normal. Follows commands. PSYCHIATRIC: Mood normal. SKIN: Right lower extremity erythema - Constitutional Vitals: Temp Pulse Resp BP Pulse Ox 98.9 F 103 H 15 147/86 98 07/25/17 14:59 07/25/17 14:59 07/25/17 14:59 07/25/17 14:59 07/25/17 14:59 General appearance: Present: no acute distress Results - Labs CBC & Chem 7: 07/25/17 06:05 07/25/17 09:37 Labs: Laboratory Last Values WBC 15.2 K/mm3 (4.5-11.0) H 07/25/17 06:05 RBC 5.28 M/mm3 (3.65-5.03) H 07/25/17 06:05 Hgb 13.5 gm/dl (11.8-15.2) 07/25/17 06:05 Hct 41.4 % (35.5-45.6) 07/25/17 06:05 MCV 78 fl (84-94) L 07/25/17 06:05 MCH 26 pg (28-32) L 07/25/17 06:05 MCHC 33 % (32-34) 07/25/17 06:05 RDW 15.0 % (13.2-15.2) 07/25/17 06:05 Plt Count 300 K/mm3 (140-440) 07/25/17 06:05 Lymph % (Auto) 9.5 % (13.4-35.0) L 07/21/17 16:54 Cecil % (Auto) 10.4 % (0.0-7.3) H 07/21/17 16:54 Eos % (Auto) 0.4 % (0.0-4.3) 07/21/17 16:54 Baso % (Auto) 0.3 % (0.0-1.8) 07/21/17 16:54 Lymph # 1.7 K/mm3 (1.2-5.4) 07/21/17 16:54 Cecil # 1.9 K/mm3 (0.0-0.8) H 07/21/17 16:54 Eos # 0.1 K/mm3 (0.0-0.4) 07/21/17 16:54 Baso # 0.1 K/mm3 (0.0-0.1) 07/21/17 16:54 Seg Neutrophils % 79.4 % (40.0-70.0) H 07/21/17 16:54 Seg Neutrophils # 14.6 K/mm3 (1.8-7.7) H 07/21/17 16:54 PT 14.6 Sec. (12.2-14.9) 07/21/17 20:48 INR 1.08 (0.87-1.13) 07/21/17 20:48 APTT 40.0 Sec. (24.2-36.6) H 07/21/17 20:48 D-Dimer 194.86 ng/mlDDU (0-234) 07/21/17 20:48 Heparin Anti-Xa Level 0.35 U.I./ml (0.3-0.7) 07/23/17 07:43 Sodium 138 mmol/L (137-145) 07/25/17 09:37 Potassium 3.7 mmol/L (3.6-5.0) 07/25/17 09:37 Chloride 98.0 mmol/L (98-107) 07/25/17 09:37 Carbon Dioxide 26 mmol/L (22-30) 07/25/17 09:37 Anion Gap 18 mmol/L 07/25/17 09:37 BUN 7 mg/dL (9-20) L 07/25/17 09:37 Creatinine 0.6 mg/dL (0.8-1.5) L 07/25/17 09:37 Estimated GFR > 60 ml/min 07/25/17 09:37 BUN/Creatinine Ratio 12 % 07/25/17 09:37 Glucose 137 mg/dL (75-100) H 07/25/17 09:37 Lactic Acid 1.60 mmol/L (0.7-2.0) 07/22/17 03:30 Calcium 9.1 mg/dL (8.4-10.2) 07/25/17 09:37 Total Creatine Kinase 148 units/L (55-170) 07/21/17 Unknown C-Reactive Protein 24.80 mg/dL (0.00-1.30) H 07/22/17 08:05 - Imaging and Cardiology Imaging and Cardiology: CT lower extremity shows extensive cellulitis but no deep tissue infection
[2017-07-26] MEDS: NORCO 5/325 PO PRN ×3 (02:32→11:28)
[2017-07-26] MEDS: ceFAZolin 1 GM in NACL 0.9% 20 ML IV SCH ×2 (04:38→12:00)
[2017-07-26] MEDS: CLEOCIN 900 MG/50 mL 900 MG/50 ML BAG IV SCH ×2 (06:06→14:00)
[2017-07-26 06:17] LABS: Hematocrit 40.8 % (35.5-45.6); Hemoglobin 13.5 gm/dl (11.8-15.2); Mean Corpuscular HGB Conc 33 % (32-34); Mean Corpuscular Hemoglobin 26 pg (28-32); Mean Corpuscular Volume 79 fl (84-94); Platelet Count 331 K/mm3 (140-440); Red Blood Count 5.18 M/mm3 (3.65-5.03); Red Cell Distribution Width 14.8 % (13.2-15.2)
[2017-07-26 07:58] VITALS: BP 118/77
--- NOTE | 2017-07-26 09:55 | Progress Note ---
<ALLISON BLACK - Last Filed: 07/26/17 10:04> Assessment and Plan Assessment: 1) Sepsis-present on admission manifested by fever, tacycardia, leukocytosis. Etiology most likely RLE cellulitis 2) RLE cellulitis -CTA showed extensive cellulitis. No abscess or osteo Plan: -Follow up with blood cultures -obtain C-reactive protein (CRP) -US venous -continue leg elevation -continue zosyn -continue topical antimicotics -Recommend levaquin 750 mg po q 12 hrs x [address] DamonC [address] Dr[address] Bro Subjective Date of service: 07/26/17 Principal diagnosis: cellulitis Interval history: I think I am going home today, my leg swelling looks so much better Microbiology Blood cultures: 07/21 ngtd Urine cultures: Current Antimicrobials -Zosyn Previous Antimicrobials: Objective - Constitutional Vitals: Vital Signs Temp Pulse Resp BP Pulse Ox 98.6 F 84 18 118/77 95 07/26/17 07:54 07/26/17 07:54 07/26/17 07:54 07/26/17 07:54 07/26/17 07:54 Temperature -Last 24 Hours Temperature 98.6 F Temperature 98.8 F Temperature 98.9 F Temperature 98.4 F General appearance: Present: no acute distress - EENT Eyes: EOM intact - Neck Neck: supple, normal ROM - Respiratory Respiratory effort: normal Respiratory: right: CTA - Cardiovascular Rhythm: regular Heart Sounds: Present: S1 & S2. Absent: gallop, rub, click Extremities: abnormal (right lower extremity cellulitis) Extremity abnormal: edema (RLE) - Gastrointestinal General gastrointestinal: Present: non-tender, non-distended - Genitourinary Male genitourinary: deferred - Integumentary Integumentary: warm, erythema (RLE) - Musculoskeletal Musculoskeletal: other (right lower extremity weakness) - Neurologic Neurologic: CNII-XII intact - Psychiatric Psychiatric: appropriate mood/affect, memory intact, cooperative - Labs CBC & Chem 7: 07/26/17 Unknown 07/25/17 09:37 Labs: Abnormal lab results 07/25/17 07/26/17 Range/Units 09:37 Unknown WBC 14.5 H (4.5-11.0) K/mm3 RBC 5.18 H (3.65-5.03) M/mm3 MCV 79 L (84-94) fl MCH 26 L (28-32) pg BUN 7 L (9-20) mg/dL Creatinine 0.6 L (0.8-1.5) mg/dL Glucose 137 H (75-100) mg/dL <PERLA ECHEVARRIA - Last Filed: 07/26/17 15:00> Assessment and Plan I have seen and examined patient with STOCK CLIPPER Allison Black and agree with her report. Add ceftin 500 mg po q12h to levaquin 750 mg po qday total 10 days. Perla Bro MD Objective - Constitutional Vitals: Vital Signs Temp Pulse Resp BP Pulse Ox 98.6 F 84 18 118/77 95 07/26/17 07:54 07/26/17 07:54 07/26/17 07:54 07/26/17 07:54 07/26/17 07:54 Temperature -Last 24 Hours Temperature 98.6 F Temperature 98.8 F Temperature 98.9 F - Labs CBC & Chem 7: 07/26/17 Unknown 07/25/17 09:37 Labs: Abnormal lab results 07/26/17 Range/Units Unknown WBC 14.5 H (4.5-11.0) K/mm3 RBC 5.18 H (3.65-5.03) M/mm3 MCV 79 L (84-94) fl MCH 26 L (28-32) pg
[2017-07-26] MEDS: LOVENOX SUB-Q SCH (10:15)
[2017-07-26] MEDS: NORVASC PO SCH (10:15)
[2017-07-26] MEDS: NIZORAL TP SCH (10:15)
--- NOTE | 2017-07-26 10:16 | Discharge Summary ---
Providers - Providers Date of Admission: 07/21/17 21:24 Attending physician: RAGHU QUINN MD 07/22/17 09:51 Consult to Physician [CONS] Routine Consulting Provider: BALA ECHEVARRIA Reason For Exam: cellulitis right leg Place consult to:: Dieudonne Notified:: yes Time called:: 10:25 Comment:: I notified Dr Bro Primary care physician: SENIOR TAX ANALYST Hospitalization Reason for admission: sepsis Condition: Stable Hospital course: 42 YO Male with HTN, Obesity,Nicotine Dependence, Metabolic Syndrome presents to ED for evaluation. Pt states that he has experienced right leg pain for the past 5 days, as well as a rash to his right lower leg. Pt states that the rash began after applying a pain relief patch to his leg. Pt states the pain to his right calf is severe, and rates the pain at 10/10, constant. sharp, and radiates down his leg. Pt states that he engaged in a long drive for hours, days before onset of his symptoms. Pt denies fever, chills, CP, Palpitations, trauma or injury to the right leg, hemoptysis, night sweats, dyspnea, cough, individual/family history of DVT or PE, paresthesias or motor deficit in the right leg or foot, or recent ill contacts. Pt seen and evaluated in ED and was initiated on therapeutic anticoagulation. Pt also found to have sepsis secondary to cellulitis to RLE and initiated on antibiotic therpay and sepsis protocol. Lower extremity Doppler did not reveal any deep vein thrombosis. Patient was treated with clindamycin and cefazolin and subsequently changed to Levaquin and Ceftin on discharge. Patient was counseled on [place] other sites. And to follow-up with primary care physician and infectious disease. Blood pressure was also addressed. Patient was given extensive counseling the morbid obesity and need to lose weight. Community resources were provided to the patient who verbalized understanding. He is clinically stable today for discharge Discharge diagnosis Sepsis due to right leg cellulitis. Cellulitis right leg. Hypertension. Morbid obesity. Disposition: TO HOME OR SELFCARE Time spent for discharge: 35 mins Core Measure Documentation - Palliative Care Palliative Care/ Comfort Measures: Not Applicable - Core Measures Any of the following diagnoses?: none - VTE Discharge Requirements Deep Vein Thrombosis/Pulmonary Embolism Present on Admission: No Exam - Physical Exam Narrative exam: VITAL SIGNS: Reviewed. GENERAL: The patient appeared well nourished and normally developed. Otherwise morbidly obese Vital signs as documented. HEAD: No signs of head trauma. EYES: Pupils are equal. Extraocular motions intact. EARS: Hearing grossly intact. MOUTH: Oropharynx is normal. NECK: No adenopathy, no JVD. CHEST: Chest with clear breath sounds bilaterally. No wheezes, rales, or rhonchi. CARDIAC: Regular rate and rhythm. S1 and S2, without murmurs, gallops, or rubs. VASCULAR: No Edema. Peripheral pulses normal and equal in all extremities. ABDOMEN: Soft, without detectable tenderness. No sign of distention. No rebound or guarding, and no masses palpated. Bowel Sounds normal. MUSCULOSKELETAL: Good range of motion of all major joints. Extremities without clubbing, cyanosis or edema. NEUROLOGIC EXAM: Alert and oriented x 3. No focal sensory or strength deficits. Speech normal. Follows commands. PSYCHIATRIC: Mood normal. SKIN: Right lower extremity erythema - Constitutional Vitals: Temp Pulse Resp BP Pulse Ox 98.6 F 84 18 118/77 95 07/26/17 07:54 07/26/17 07:54 07/26/17 07:54 07/26/17 07:54 07/26/17 07:54 Plan Activity: advance as tolerated, fall precautions Diet: regular Additional Instructions: Repeat Complete blood count at the physicians office in 1 week Follow up with: PRIMARY CARE, [Primary Care Provider] - 7 Days BALA ECHEVARRIA MD [Staff Physician] - 7 Days Prescriptions: amLODIPine [Norvasc] 5 mg PO QDAY #30 tablet Cefuroxime [Ceftin] 500 mg PO Q12H 7 Days tablet HYDROcodone/APAP 5-325 [[place] 5-325 mg TAB] 1 each PO Q4H PRN #14 tablet PRN Reason: pain Levofloxacin [Levaquin] 750 mg PO QDAY #7 tablet Other Discharge Orders: VL venous duplex LE RT Time Frame: 1 Day, Facility: [facility], Location: VASCULAR LAB
== END 2017-07-26 15:00 | disposition home or self-care (01) | DRG 872 ==
LOC: ED 13:05 → 3A 21:24
PROVIDERS: ADMIT Internal Medicine; ATTEND Internal Medicine
DX: A41.9 Sepsis, unspecified organism (principal); L03.115 Cellulitis of right lower limb; I82.401 Acute embolism and thrombosis of unspecified deep veins of right lower extremity; I10 Essential (primary) hypertension; F17.200 Nicotine dependence, unspecified, uncomplicated; E88.81 Metabolic syndrome and other insulin resistance; E66.01 Morbid (severe) obesity due to excess calories; B35.3 Tinea pedis; E86.0 Dehydration; Z83.3 Family history of diabetes mellitus; Z68.41 Body mass index [BMI] 40.0-44.9, adult; Z90.49 Acquired absence of other specified parts of digestive tract; Z82.49 Family history of ischemic heart disease and other diseases of the circulatory system
CPT/HCPCS: 36415; 80048; 82140; 82550; 85014; 85018; 85025; 85027; 85049; 85379; 85520; 85610; 85730; 86140; 87040; 96374; 96375; 99406; J0690; J1644; J1650; J2405; J2543; J3010; J7030; Q9967

== ENCOUNTER → 2021-03-16 | Emergency (ER) | payer OTHER ==
[~2021-03-16] MED LIST: ASPIRIN 325 MG TAB PO ONE; FUROSEMIDE 20 MG TAB PO ONE
--- NOTE | 2021-03-16 11:43 | XRay Report ---
CHEST 2 VIEWS INDICATION / CLINICAL INFORMATION: SOB. COMPARISON: None available. FINDINGS: SUPPORT DEVICES: None. HEART / MEDIASTINUM: Cardiomegaly LUNGS / PLEURA: No significant pulmonary or pleural abnormality. No pneumothorax. ADDITIONAL FINDINGS: No significant additional findings. IMPRESSION: 1. Cardiomegaly Signer Name: Kevin Nice DO Signed: 03/16/2021 11:38 AM Workstation Name: [id number]
[2021-03-16 12:02] LABS: Alanine Aminotransferase 23 units/L (7-56); BUN/Creatinine Ratio 13; Blood Urea Nitrogen 12 mg/dL (9-20); Calcium 9.6 mg/dL (8.4-10.2); Hemolysis Index 15
[2021-03-16 12:03] LABS: Basophils # (Auto) 0.1 K/mm3 (0.0-0.1); Basophils % (Auto) 0.6 % (0.0-1.8); Eosinophils # (Auto) 0.1 K/mm3 (0.0-0.4); Eosinophils % (Auto) 0.7 % (0.0-4.3); Hematocrit 48.9 % (35.5-45.6); Hemoglobin 15.7 gm/dl (11.8-15.2); Lymphocytes # (Auto) 2.7 K/mm3 (1.2-5.4); Lymphocytes % (Auto) 29.3 % (13.4-35.0); Mean Corpuscular HGB Conc 32 % (32-34); Mean Corpuscular Volume 86 fl (84-94); Monocytes # (Auto) 0.5 K/mm3 (0.0-0.8); Monocytes % (Auto) 5.7 % (0.0-7.3); Platelet Count 217 K/mm3 (140-440); Red Blood Count 5.68 M/mm3 (3.65-5.03); Red Cell Distribution Width 15.8 % (13.2-15.2)
--- NOTE | 2021-03-16 13:01 | Event Note ---
ED Screening Note ED Screening Note: pt presents elevated blood pressure states it has been high since he was 18 yo states he has not been on medication since 2018 has not seen a primary care doctor since 2018 +CP described as a pressure a week or two +SOB +leg swelling PMHx HTN no allergies to meds This initial assessment/diagnostic orders/clinical plan/treatment(s) is/are subject to change based on patients health status, clinical progression and re- assessment by fellow clinical providers in the ED. Further treatment and workup at subsequent clinical providers discretion. Patient/guardian urged not to elope from the ED as their condition may be serious if not clinically assessed and managed. Initial orders include: cp protocol
[2021-03-16 16:40] VITALS: BP 159/117
--- NOTE | 2021-03-16 16:42 | Emergency Department Report ---
ED Shortness of Breath HPI - General Chief Complaint: High BP Stated Complaint: HIGH BLOOD PRESSURE Time Seen by Provider: 03/16/21 12:59 Source: patient Mode of arrival: Ambulatory Limitations: No Limitations - History of Present Illness Initial Comments: 45-year-old male with a past medical history of obesity, hypertension, and nicotine dependence presents to the hospital complaining of shortness of breath and leg edema for the last 1 to 2 weeks. Patient has dyspnea on exertion at times. He denies persistent orthopnea or PND. Patient has been experiencing intermittent leg edema that has worsened yesterday. Leg edema worse with standing throughout the day and improves with leg elevation. Patient complains of increased mucus in his throat but denies cough, fever, loss of sense of taste or smell. Had a negative Covid vaccine last week. Unvaccinated for Covid. Patient quit smoking 3 months ago. Denies family history of CAD. History of hypertension at age 18. Noncompliant with meds since 2018. Patient denies chest pain but states he has been having increased belching since eating a fried pork chop yesterday. He denies chest pressure or pain radiation. Patient also drinks alcohol daily but denies history of alcohol withdrawal symptoms. PMD: None Patient received labetalol 100 mg in triage prior to my evaluation - Related Data Previous Rx's Medication Instructions Recorded Last Taken Type HYDROcodone/APAP 5-325 [[place] 1 each PO Q4H PRN #14 tablet 07/26/17 Unknown Rx 5-325 mg TAB] amLODIPine 5 mg PO QDAY #30 tablet 07/26/17 Unknown Rx cefUROXime [Ceftin] 500 mg PO Q12H 7 Days tablet 07/26/17 Unknown Rx levoFLOXacin [Levaquin] 750 mg PO QDAY #7 tablet 07/26/17 Unknown Rx Amlodipine Besylate [Norvasc] 10 mg PO DAILY #30 tablet 03/16/21 Unknown Rx Furosemide [Lasix] 20 mg PO QDAY #7 tablet 03/16/21 Unknown Rx Allergies Allergy/AdvReac Type Severity Reaction Status Date / Time No Known Allergies Allergy Verified 03/16/21 11:18 ED Review of Systems ROS: Stated complaint: HIGH BLOOD PRESSURE Other details as noted in HPI Comment: All other systems reviewed and negative ED Past Medical Hx - Past Medical History Hx Hypertension: Yes Hx Congestive Heart Failure: No Hx Diabetes: No Hx Deep Vein Thrombosis: Yes Hx Asthma: No Hx COPD: No - Surgical History Hx Appendectomy: Yes - Social History Smoking Status: Current Every Day Smoker - Medications Home Medications: Home Medications Medication Instructions Recorded Confirmed Last Taken Type HYDROcodone/APAP 5-325 [[place] 1 each PO Q4H PRN #14 tablet 07/26/17 Unknown Rx 5-325 mg TAB] amLODIPine 5 mg PO QDAY #30 tablet 07/26/17 Unknown Rx cefUROXime [Ceftin] 500 mg PO Q12H 7 Days tablet 07/26/17 Unknown Rx levoFLOXacin [Levaquin] 750 mg PO QDAY #7 tablet 07/26/17 Unknown Rx Amlodipine Besylate [Norvasc] 10 mg PO DAILY #30 tablet 03/16/21 Unknown Rx Furosemide [Lasix] 20 mg PO QDAY #7 tablet 03/16/21 Unknown Rx ED Physical Exam - General Limitations: No Limitations - Other Other exam information: General: No acute distress Head: Atraumatic Eyes: normal appearance ENT: Moist mucous membranes Neck: Normal appearance, no midline tenderness Chest: Clear to auscultation bilaterally, no wheezes, rales CV: Regular rate and rhythm Abdomen: Soft, normal bowel sounds, nontender, nondistended, no rebound or guarding Back: Normal inspection Extremity: Bilateral leg edema 2+, no leg asymmetry, no calf tenderness Neuro: Alert O x 3, no facial asymmetry, speech clear, no gross motor sensory deficit Psych: Appropriate behavior Skin: No rash ED Course Vital Signs 03/16/21 03/16/21 11:18 16:40 Temperature 97.9 F Pulse Rate 115 H 108 H Respiratory 20 16 Rate Blood Pressure 184/122 Blood Pressure 159/117 [Left] O2 Sat by Pulse 95 95 Oximetry ED Medical Decision Making - Lab Data Result diagrams: 03/16/21 11:26 03/16/21 11:26 Lab Results 03/16/21 03/16/21 03/16/21 Range/Units 11:26 11:26 14:29 WBC 9.2 (4.5-11.0) K/mm3 RBC 5.68 H (3.65-5.03) M/mm3 Hgb 15.7 H (11.8-15.2) gm/dl Hct 48.9 H (35.5-45.6) % MCV 86 (84-94) fl MCH 28 (28-32) pg MCHC 32 (32-34) % RDW 15.8 H (13.2-15.2) % Plt Count 217 (140-440) K/mm3 Lymph % (Auto) 29.3 (13.4-35.0) % Callahan % (Auto) 5.7 (0.0-7.3) % Eos % (Auto) 0.7 (0.0-4.3) % Baso % (Auto) 0.6 (0.0-1.8) % Lymph # (Auto) 2.7 (1.2-5.4) K/mm3 Callahan # (Auto) 0.5 (0.0-0.8) K/mm3 Eos # (Auto) 0.1 (0.0-0.4) K/mm3 Baso # (Auto) 0.1 (0.0-0.1) K/mm3 Seg Neutrophils % 63.7 (40.0-70.0) % Seg Neutrophils # 5.9 (1.8-7.7) K/mm3 Sodium 138 (137-145) mmol/L Potassium 3.8 (3.6-5.0) mmol/L Chloride 102.2 (98-107) mmol/L Carbon Dioxide 25 (22-30) mmol/L Anion Gap 15 mmol/L BUN 12 (9-20) mg/dL Creatinine 0.9 (0.8-1.3) mg/dL Estimated GFR > 60 ml/min BUN/Creatinine Ratio 13 % Glucose 134 H (75-100) mg/dL Calcium 9.6 (8.4-10.2) mg/dL Total Bilirubin 1.60 H (0.1-1.2) mg/dL AST 26 (5-40) units/L ALT 23 (7-56) units/L Alkaline Phosphatase 63 (35-129) units/L Troponin T < 0.010 < 0.010 (0.00-0.029) ng/mL NT-Pro-B Natriuret Pep (0-450) pg/mL Total Protein 7.2 (6.3-8.2) g/dL Albumin 4.0 (3.9-5) g/dL Albumin/Globulin Ratio 1.3 % // Range/Units 14:29 WBC (4.5-11.0) K/mm3 RBC (3.65-5.03) M/mm3 Hgb (11.8-15.2) gm/dl Hct (35.5-45.6) % MCV (84-94) fl MCH (28-32) pg MCHC (32-34) % RDW (13.2-15.2) % Plt Count (140-440) K/mm3 Lymph % (Auto) (13.4-35.0) % Callahan % (Auto) (0.0-7.3) % Eos % (Auto) (0.0-4.3) % Baso % (Auto) (0.0-1.8) % Lymph # (Auto) (1.2-5.4) K/mm3 Callahan # (Auto) (0.0-0.8) K/mm3 Eos # (Auto) (0.0-0.4) K/mm3 Baso # (Auto) (0.0-0.1) K/mm3 Seg Neutrophils % (40.0-70.0) % Seg Neutrophils # (1.8-7.7) K/mm3 Sodium (137-145) mmol/L Potassium (3.6-5.0) mmol/L Chloride (98-107) mmol/L Carbon Dioxide (22-30) mmol/L Anion Gap mmol/L BUN (9-20) mg/dL Creatinine (0.8-1.3) mg/dL Estimated GFR ml/min BUN/Creatinine Ratio % Glucose (75-100) mg/dL Calcium (8.4-10.2) mg/dL Total Bilirubin (0.1-1.2) mg/dL AST (5-40) units/L ALT (7-56) units/L Alkaline Phosphatase (35-129) units/L Troponin T (0.00-0.029) ng/mL NT-Pro-B Natriuret Pep 1637 H (0-450) pg/mL Total Protein (6.3-8.2) g/dL Albumin (3.9-5) g/dL Albumin/Globulin Ratio % - EKG Data -: EKG Interpreted by Me (Right bundle branch block. No STEMI. Left posterior fascicular block) - Radiology Data Radiology results: report reviewed CHEST 2 VIEWS INDICATION / CLINICAL INFORMATION: SOB. COMPARISON: None available. FINDINGS: SUPPORT DEVICES: None. HEART / MEDIASTINUM: Cardiomegaly LUNGS / PLEURA: No significant pulmonary or pleural abnormality. No pneumothorax. ADDITIONAL FINDINGS: No significant additional findings. IMPRESSION: 1. Cardiomegaly - Medical Decision Making 45-year male presents to the hospital with progressive worsening bilateral lower extremity edema and intermittent dyspnea on exertion. Patient has obesity and hypertension has been off of BP meds since 2018. Sinus and suggestive of hypertension with new onset heart failure primarily right-sided as per clinical exam. Chest x-ray is negative for pulmonary edema but positive for cardiomegaly and right bundle branch block for right atrial large mass on EKG. Given new o nset heart failure in the setting of untreated hypertension admission was recommended to the patient. Patient declines admission at this time stating that he prefers to try outpatient therapy and follow-up with a provider. I expressed that also concerns me that patient does not have a primary care physician. I spoke to patient extensively about lifestyle modification i.e. continue to abstain from smoking, stop drinking, better dietary changes, and weight loss. Also spoke to patient at length about importance of compliance with medication and follow-up since he is refusing admission at this time. Patient continue denies having chest pain and states that he is belching intermittently which is improved with Mylanta. Patient will be signing out AGAINST MEDICAL ADVICE with medication for hypertension and edema. Receive strict instructions to return to the ED if symptoms worsen. Patient may also have sleep apnea which may be contributing to signs and symptoms of right heart failure with possible underlying pulmonary hypertension. Outpatient follow-up with pulmonology for sleep study will also be recommended Critical Care Time: No Critical care attestation.: If time is entered above; I have spent that time in minutes in the direct care of this critically ill patient, excluding procedure time. ED Disposition Clinical Impression: Uncontrolled hypertension, Bilateral leg edema, Noncompliance with medication regimen, Obesity, Daily consumption of alcohol Disposition: 07 LEFT AGAINST MEDICAL ADVICE Is pt being admited?: No Does the pt Need Aspirin: No Condition: Stable Instructions: Alcohol Abuse and Dependence Information, Adult, Edema, Hypertension, Adult, Obesity, Adult, [id number], Hypertension (ED) Additional Instructions: Take the medication as prescribed. Follow-up with your doctor or doctor/clinic provided. Return if symptoms worsen as indicated by your discharge instructions. You have declined admission at this time. Please follow-up very closely with your primary care doctor and a household refrigeration mechanic to further work-up and evaluation. You have been started on medication today to help with your blood pressure and leg swelling. Ultimately you will need medication adjustment to optimize your treatment. You may experience low potassium while taking Lasix. Please return to the ER if symptoms worsen as indicated by your discharge instructions. You may also have sleep apnea because it undiagnosed sleep apnea which may be causing strain to your heart. Please follow-up with the sound effects manager for an outpatient sleep study. Prescriptions: Furosemide [Lasix] 20 mg PO QDAY #7 tablet Amlodipine Besylate [Norvasc] 10 mg PO DAILY #30 tablet Referrals: [facility] [Provider Group] - 3-5 Days (Primary care clinic) NAIMA OCONNELL MD [Staff Physician] - 3-5 Days (Subway Train Operator) IBIS GARCÍA MD [Staff Physician] - 3-5 Days (Primary care doctor) JOSUE RENEE MD [Primary Care Provider] - 3-5 Days GEE VARGAS MD [Staff Physician] - 3-5 Days (Director Writing) Time of Disposition: 17:26
--- NOTE | 2021-03-17 09:36 | Electrocardiograph Report ---
[facility] Test Date: 2021-03-16 Test Time: 11:46:46 Pat Name: SHAY PALACIOS Department: Room: Gender: M Client Delivery Manager: ROYER : 1975 Requested By: ED DOC Order Number: [id number] Reading MD: Javi Falcon Measurements Intervals [place] Rate: 110 P: 31 [place]: 136 QRS: 119 QRSD: 182 T: -31 QT: 418 QTc: 567 Interpretive Statements Sinus tachycardia Probable left atrial enlargement RBBB and LPFB PROLONGED QT [id number] No previous ECG available for comparison Electronically Signed On 03-17-2021 9:36:22 EDT by Javi Falcon
== END | disposition home or self-care (01) ==
LOC: ED 11:02
DX: R60.0 Localized edema (principal); F17.200 Nicotine dependence, unspecified, uncomplicated; Z91.14 Patient's other noncompliance with medication regimen; Z78.9 Other specified health status; Z79.899 Other long term (current) drug therapy; Z90.49 Acquired absence of other specified parts of digestive tract
CPT/HCPCS: 36415; 71046; 80053; 83880; 84484; 85025; 93005

== ENCOUNTER 2021-05-03 03:00 | Emergency (ER) | payer SELFPAY ==
--- NOTE | 2021-05-03 03:54 | Emergency Department Report ---
Chief Complaint: High BP Stated Complaint: MED REFILL Time Seen by Provider: 05/03/21 03:41 - HPI History of Present Illness: 45-year-old male patient with history of hypertension presents to the emergency department requesting refill of blood pressure medication. Patient states he has been out of his Amlodipine for approximately 2 weeks. He currently does not have insurance coverage and is unable to return to his primary care provider. When asked what prompted him to come to the emergency department tonight after being out of the medication for 14 days, patient states, "I just got off work and was on my way home and decided I didn't want my blood pressure to stay high." He is asymptomatic without no complaints. - ROS Review of Systems: GENERAL: Negative for fever. CARDIOVASCULAR: Negative for chest pain. PULMONARY: Negative for shortness of breath. GASTROINTESTINAL: Negative for abdominal pain. MUSCULOSKELETAL: Negative for back pain. NEUROLOGICAL: Negative for headache. INTEGUMENTARY: Negative for rash. - Exam Vital Signs: Vital Signs 05/03/21 05/03/21 03:38 03:39 Temperature 97.8 F Pulse Rate 106 H Respiratory 20 Rate Blood Pressure 177/121 O2 Sat by Pulse 95 Oximetry Physical Exam: General: Awake and alert. No acute distress. Head: Atraumatic, normocephalic. Eyes: EOMI. Pupils are equal and round, reactive to light, no nystagmus. Normal sclera and conjunctiva. ENT: Oral mucosa is moist. Normal pharyngeal exam. Neck: Supple. No lymphadenopathy. Pulmonary: No respiratory distress. Clear to auscultation bilaterally. Cardiac: Regular rate and rhythm. Pulses are palpable and equal bilaterally. No lower extremity cyanosis or edema. Skin: Warm and dry. No rashes. Abdomen: Soft, non-tender, non-protuberant. No guarding, rigidity, or rebound. Bowel sounds are normal. No organomegaly or masses noted. Back: Normal alignment. No CVA tenderness. Extremities: Symmetrical. Full range of motion intact. Neurological: Alert and oriented, appropriately interactive, no focal deficits. Psych: Cooperative. Appropriate mood and affect. Speech is evenly metered. Thoughts are logically construed. MSE screening note: Focused history and physical exam performed. Due to findings the following was ordered: ED Medical Decision Making - Medical Decision Making Patient presents to the emergency department requesting refill of his blood pressure medication. His blood pressure was noted to be elevated in the emergency department, as he has been out of his medication for two weeks. He is asymptomatic. Specifically, he denies chest pain, shortness of breath, palpitations, syncope, headache, vision changes. Neurological exam is nonfocal and remainder of vital signs are stable. No clinical indication for further diagnostic work-up and/or emergent administration of antihypertensive therapy at this time per ACEP asymptomatic hypertension guidelines. Patient will be discharged home with a one-week supply of Amlodipine. Patient requested a month's worth of medicine as well as addition of a diuretic. It was explained to the patient that the emergency department is not responsible for does not modify or adjust outpatient antihypertensive medication regimens and he would need to make arrangements for a primary care provider to make changes as clinically indicated. Patient expressed understanding and is agreeable to plan of care. Strict return precautions provided. BILLING/CODING: This patient encounter does not represent a certified medical emergency. ED Disposition for MSE Condition: Stable
--- NOTE | 2021-05-03 03:55 | Emergency Department Report ---
ED General Adult HPI - General Chief complaint: High BP Stated complaint: MED REFILL Time Seen by Provider: 05/03/21 03:41 Source: patient Mode of arrival: Ambulatory Limitations: No Limitations - History of Present Illness Initial comments: 45-year-old male patient with history of hypertension presents to the emergency department requesting refill of blood pressure medication. Patient states he has been out of his Amlodipine for approximately 2 weeks. He currently does not have insurance coverage and is unable to return to his primary care provider. When asked what prompted him to come to the emergency department tonight after being out of the medication for 14 days, patient states, "I just got off work and was on my way home and decided I didn't want my blood pressure to stay high." He is asymptomatic without no complaints. - Related Data Previous Rx's Medication Instructions Recorded Last Taken Type HYDROcodone/APAP 5-325 [[place] 1 each PO Q4H PRN #14 tablet 07/26/17 Unknown Rx 5-325 mg TAB] amLODIPine 5 mg PO QDAY #30 tablet 07/26/17 Unknown Rx cefUROXime [Ceftin] 500 mg PO Q12H 7 Days tablet 07/26/17 Unknown Rx levoFLOXacin [Levaquin] 750 mg PO QDAY #7 tablet 07/26/17 Unknown Rx Amlodipine Besylate [Norvasc] 10 mg PO DAILY #30 tablet 03/16/21 Unknown Rx Furosemide [Lasix] 20 mg PO QDAY #7 tablet 03/16/21 Unknown Rx amLODIPine 10 mg PO DAILY #7 tab 05/03/21 Unknown Rx Allergies Allergy/AdvReac Type Severity Reaction Status Date / Time No Known Allergies Allergy Verified 03/16/21 11:18 ED Review of Systems ROS: Stated complaint: MED REFILL Other details as noted in HPI Other: GENERAL: Negative for fever, chills, weight change, anorexia, fatigue. ENT: Negative for ear pain, difficulty hearing, sore throat, nasal congestion, epistaxis. CARDIOVASCULAR: Negative for chest pain, palpitations, lower extremity swelling. PULMONARY: Negative for cough, dyspnea, wheezing, orthopnea, cyanosis. GASTROINTESTINAL: Negative for abdominal pain, nausea, vomiting, diarrhea, constipation. MUSCULOSKELETAL: Negative for joint pain, joint swelling, myalgias, back pain, neck pain. NEUROLOGICAL: Negative for headache, seizure, syncope, paresthesias, weakness. INTEGUMENTARY: Negative for erythema, rash, diaphoresis, laceration, ecchymosis. HEMATOLOGICAL: Negative for hemoptysis, hematemesis, hematochezia, hematuria. PSYCHIATRIC: Negative for hallucinations, suicidal ideation, homicidal ideation, anxiety, depression. ED Past Medical Hx - Past Medical History Previous Medical History?: Yes Hx Hypertension: Yes Hx Congestive Heart Failure: No Hx Diabetes: No Hx Deep Vein Thrombosis: Yes Hx Asthma: No Hx COPD: No - Surgical History Past Surgical History?: Yes Hx Appendectomy: Yes - Social History Smoking Status: Current Every Day Smoker - Medications Home Medications: Home Medications Medication Instructions Recorded Confirmed Last Taken Type HYDROcodone/APAP 5-325 [[place] 1 each PO Q4H PRN #14 tablet 07/26/17 Unknown Rx 5-325 mg TAB] amLODIPine 5 mg PO QDAY #30 tablet 07/26/17 Unknown Rx cefUROXime [Ceftin] 500 mg PO Q12H 7 Days tablet 07/26/17 Unknown Rx levoFLOXacin [Levaquin] 750 mg PO QDAY #7 tablet 07/26/17 Unknown Rx Amlodipine Besylate [Norvasc] 10 mg PO DAILY #30 tablet 03/16/21 Unknown Rx Furosemide [Lasix] 20 mg PO QDAY #7 tablet 03/16/21 Unknown Rx amLODIPine 10 mg PO DAILY #7 tab 05/03/21 Unknown Rx ED Physical Exam - General Limitations: No Limitations - Other Other exam information: General: Awake and alert. No acute distress. Head: Atraumatic, normocephalic. Eyes: EOMI. Pupils are equal and round, reactive to light, no nystagmus. Normal sclera and conjunctiva. ENT: Oral mucosa is moist. Normal pharyngeal exam. Neck: Supple. No lymphadenopathy. Pulmonary: No respiratory distress. Clear to auscultation bilaterally. Cardiac: Regular rate and rhythm. Pulses are palpable and equal bilaterally. No lower extremity cyanosis or edema. Skin: Warm and dry. No rashes. Abdomen: Soft, non-tender, non-protuberant. No guarding, rigidity, or rebound. Bowel sounds are normal. No organomegaly or masses noted. Back: Normal alignment. No CVA tenderness. Extremities: Symmetrical. Full range of motion intact. Neurological: Alert and oriented, appropriately interactive, no focal deficits. Psych: Cooperative. Appropriate mood and affect. Speech is evenly metered. Thoughts are logically construed. ED Course Vital Signs 05/03/21 05/03/21 03:38 03:39 Temperature 97.8 F Pulse Rate 106 H Respiratory 20 Rate Blood Pressure 177/121 O2 Sat by Pulse 95 Oximetry ED Medical Decision Making - Medical Decision Making Patient presents to the emergency department requesting refill of his blood pressure medication. His blood pressure was noted to be elevated in the emergency department, as he has been out of his medication for two weeks. He is asymptomatic. Specifically, he denies chest pain, shortness of breath, palpitations, syncope, headache, vision changes. Neurological exam is nonfocal and remainder of vital signs are stable. No clinical indication for further diagnostic work-up and/or emergent administration of antihypertensive therapy at this time per ACEP asymptomatic hypertension guidelines. Patient will be discharged home with a one-week supply of Amlodipine. Patient requested a month's worth of medicine as well as addition of a diuretic. It was explained to the patient that the emergency department is not responsible for long-term blood pressure control and does not modify or adjust outpatient antihypertensive medication regimens and he would need to make arrangements for a primary care provider to make changes as clinically indicated. Patient expressed understanding and is agreeable to plan of care. Strict return precautions provided. Critical care attestation.: If time is entered above; I have spent that time in minutes in the direct care of this critically ill patient, excluding procedure time. ED Disposition Clinical Impression: History of hypertension, Noncompliance with medication regimen Disposition: HOME / SELF CARE / HOMELESS Is pt being admited?: No Does the pt Need Aspirin: No Condition: Stable Instructions: Hypertension, Adult, [id number] Additional Instructions: Take Amlodipine as directed. Reduce dietary sodium intake. Exercise daily. You must follow-up with your primary care provider for future medication refills and adjustments to your medication regimen. If you are unable to schedule an appointment with your primary care provider, please follow up with one of the primary care providers listed below. Return to the emergency department immediately for new or worsening symptoms. Prescriptions: amLODIPine 10 mg PO DAILY #7 tab Referrals: DEBRA AKERS MD [Staff Physician] - 3-5 Days [facility] [Provider Group] - 3-5 Days Time of Disposition: 03:59
[2021-05-03 04:44] VITALS: BP 177/107
== END 2021-05-03 04:39 | disposition home or self-care (01) ==
LOC: ED 03:00
DX: I10 Essential (primary) hypertension (principal); F17.200 Nicotine dependence, unspecified, uncomplicated; Z90.49 Acquired absence of other specified parts of digestive tract; Z79.899 Other long term (current) drug therapy; Z98.890 Other specified postprocedural states
CPT/HCPCS: 99282

== ENCOUNTER 2021-10-14 15:24 | Emergency (ER) | payer BC ==
--- NOTE | 2021-10-14 16:47 | Emergency Department Report ---
ED General Adult HPI - General Chief complaint: High BP Stated complaint: BLOOD PRESSURE Source: patient Mode of arrival: Ambulatory Limitations: No Limitations - History of Present Illness Initial comments: 46-year-old male with a past medical history hypertension, obesity, leg cellulitis and DVT presents to the ER today with complaints of elevated blood pressure needing medication refill. Patient states that he has been out of his amlodipine for about 2 days. 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 Patient states that he does have a primary care doctor in [place]. He states that he is hoping to travel back to [place] this weekend. He states that he was scared to continue driving because if he gets pulled over and they checked his blood pressure and noticed that it was elevated they would not allow him to drive. Patient states that he checked his blood pressure couple days ago and it was 180/100s. Patient reports no symptoms at this time. MD Complaint: Elevated blood pressure; medication refill -: days(s) (2) - Related Data Previous Rx's Medication Instructions Recorded Last Taken Type HYDROcodone/APAP 5-325 [[place] 1 each PO Q4H PRN #14 tablet 07/26/17 Unknown Rx 5-325 mg TAB] amLODIPine 5 mg PO QDAY #30 tablet 07/26/17 Unknown Rx cefUROXime [Ceftin] 500 mg PO Q12H 7 Days tablet 07/26/17 Unknown Rx levoFLOXacin [Levaquin] 750 mg PO QDAY #7 tablet 07/26/17 Unknown Rx Amlodipine Besylate [Norvasc] 10 mg PO DAILY #30 tablet 03/16/21 Unknown Rx Furosemide [Lasix] 20 mg PO QDAY #7 tablet 03/16/21 Unknown Rx amLODIPine 10 mg PO DAILY #30 tab 10/14/21 Unknown Rx Allergies Allergy/AdvReac Type Severity Reaction Status Date / Time No Known Allergies Allergy Verified 03/16/21 11:18 ED Review of Systems ROS: Stated complaint: BLOOD PRESSURE Other details as noted in HPI Comment: All other systems reviewed and negative Respiratory: denies: cough, shortness of breath, wheezing Cardiovascular: denies: chest pain, palpitations Gastrointestinal: denies: abdominal pain, nausea, diarrhea Genitourinary: denies: urgency, dysuria, frequency, hematuria, discharge, testicular pain, testicular mass Musculoskeletal: denies: back pain, joint swelling, arthralgia Skin: denies: rash, lesions, change in color, change in hair/nails, pruritus Neurological: denies: headache, weakness, numbness, paresthesias, confusion, abnormal gait, vertigo Psychiatric: denies: anxiety, depression, auditory hallucinations, visual hallucinations, homicidal thoughts, suicidal thoughts Hematological/Lymphatic: denies: easy bruising, swollen glands ED Past Medical Hx - Past Medical History Hx Hypertension: Yes Hx Congestive Heart Failure: No Hx Diabetes: No Hx Deep Vein Thrombosis: Yes Hx Asthma: No Hx COPD: No - Surgical History Hx Appendectomy: Yes - Social History Smoking Status: Current Every Day Smoker - Medications Home Medications: Home Medications Medication Instructions Recorded Confirmed Last Taken Type HYDROcodone/APAP 5-325 [[place] 1 each PO Q4H PRN #14 tablet 07/26/17 Unknown Rx 5-325 mg TAB] amLODIPine 5 mg PO QDAY #30 tablet 07/26/17 Unknown Rx cefUROXime [Ceftin] 500 mg PO Q12H 7 Days tablet 07/26/17 Unknown Rx levoFLOXacin [Levaquin] 750 mg PO QDAY #7 tablet 07/26/17 Unknown Rx Amlodipine Besylate [Norvasc] 10 mg PO DAILY #30 tablet 03/16/21 Unknown Rx Furosemide [Lasix] 20 mg PO QDAY #7 tablet 03/16/21 Unknown Rx amLODIPine 10 mg PO DAILY #30 tab 10/14/21 Unknown Rx ED Physical Exam - General Limitations: No Limitations General appearance: alert, in no apparent distress, obese - Head Head exam: Present: atraumatic, normocephalic, normal inspection - ENT ENT exam: Present: normal exam, mucous membranes moist, TM's normal bilaterally - Neck Neck exam: Present: normal inspection, full ROM. Absent: meningismus - Respiratory Respiratory exam: Present: normal lung sounds bilaterally. Absent: respiratory distress, wheezes, rales, rhonchi, stridor - Cardiovascular Cardiovascular Exam: Present: regular rate, normal rhythm, normal heart sounds - Neurological Exam Neurological exam: Present: alert, oriented X3, CN II-XII intact, normal gait - Psychiatric Psychiatric exam: Present: normal affect, normal mood ED Course Vital Signs 10/14/21 15:55 Temperature 98.6 F Pulse Rate 96 H Respiratory 18 Rate Blood Pressure 168/101 [Right] O2 Sat by Pulse 94 Oximetry ED Medical Decision Making - Medical Decision Making 46-year-old male with a past medical history hypertension, obesity, leg cellulitis and DVT presents to the ER today with complaints of elevated blood pressure needing medication refill. Patient states that he has been out of his amlodipine for about 2 days. 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 Patient states that he does have a primary care doctor in [place]. He states that he is hoping to travel back to [place] this weekend. He states that he was scared to continue driving because if he gets pulled over and they checked his blood pressure and noticed that it was elevated they would not allow him to drive. Patient states that he checked his blood pressure couple days ago and it was 180/100s. Patient reports no symptoms at this time. 1704: Patient well-appearing, nontoxic and not in any acute distress. Patient has been talking on his phone the entire time that he has been in the ER. He is neurologically intact and his gait is normal. Patient reported no symptoms today. Blood pressure was noted to be elevated at triage but his remaining vital signs are stable. Emergent treatment of patient blood pressure not indicated at this time especially since he is asymptomatic. Patient will be given refill on his blood pressure medication, he was encouraged to continue monitoring his blood pressure at home and documenting the readings. He was also encouraged to set an appointment up with his PCP for follow-up next week. Patient expressed understanding agree with plan. Patient was stable at time of discharge. Critical care attestation.: If time is entered above; I have spent that time in minutes in the direct care of this critically ill patient, excluding procedure time. ED Disposition Clinical Impression: Uncontrolled hypertension, Non compliance w medication regimen, Medication refill, Obesity Disposition: 01 HOME / SELF CARE / HOMELESS Is pt being admited?: No Does the pt Need Aspirin: No Condition: Stable Instructions: Hypertension, Adult, [id number], Managing Your Hypertension, Hypertension (ED) Additional Instructions: I recommend that she get the amlodipine filled and start taking it today. I do recommend that she continue to check your blood pressure at home, write it down and bring the results with you to your doctors appointments. Your doctor may need to adjust your medicines. I recommend that you call your primary care doctor in [place] to schedule an appointment for next week. Return to the ER if your symptoms changes or worsens in any way. Prescriptions: amLODIPine 10 mg PO DAILY #30 tab Referrals: PRIMARY CARE, [Referring] - 3-5 Days Forms: Work/School Release Form(ED) Time of Disposition: 16:46
[2021-10-14 17:50] VITALS: BP 178/96
== END 2021-10-14 17:17 | disposition home or self-care (01) ==
LOC: ED 15:24
DX: I10 Essential (primary) hypertension (principal); Z91.14 Patient's other noncompliance with medication regimen; Z76.0 Encounter for issue of repeat prescription; E66.9 Obesity, unspecified; Z86.718 Personal history of other venous thrombosis and embolism; F17.200 Nicotine dependence, unspecified, uncomplicated
CPT/HCPCS: 99282